=== PATIENT | female | born 1995 | race African-American/Black ===

== ENCOUNTER 2016-12-02 07:56 | Emergency (ER) | payer OTHER ==
[2016-12-02 08:02] VITALS: BP 148/81
[2016-12-02] MEDS ORDERED: PENICILLIN G BENZATHINE 1.2 MILLION UNIT/2 ML DISP.SYRIN IM ONE (08:15)
[2016-12-02] MEDS ORDERED: IBUPROFEN 800 MG TABLET PO ONE (08:15)
[2016-12-02] MEDS ORDERED: LIDOCAINE 2% VISCOUS SOLN 20 ML UDCUP PO ONE (08:15)
[2016-12-02] MEDS ORDERED: DEXAMETHASONE 4 MG TABLET PO ONE (08:15)
--- NOTE | 2016-12-02 08:17 | ER Document Report ---
HPI - HPI Patient complains to provider of: sore throat Onset: Other - 5 days Onset/Duration: Persistent Quality of pain: Achy Pain Level: 5 Context: Patient presents complaining of sore throat for the past 5 days. Patient noticed exudate on left tonsil today. Patient states that she has not been taking as much oral fluids due to the discomfort in her throat. Associated Symptoms: Sore throat. denies: Earache, Fever, Headache, Nausea, Vomiting Exacerbated by: Denies Relieved by: Denies Similar symptoms previously: Yes Recently seen / treated by doctor: No - ROS ROS below otherwise negative: Yes Systems Reviewed and Negative: Yes All other systems reviewed and negative - CONSTITUTIONAL Constitutional: DENIES: Fever - EENT EENT: REPORTS: Sore Throat. DENIES: Ear Pain - RESPIRATORY Respiratory: DENIES: Coughing - GASTROINTESTINAL Gastrointestinal: DENIES: Nausea, Patient vomiting - REPRODUCTIVE Reproductive: DENIES: : - DERM Skin Color: Normal Skin Problems: None Past Medical History - General Information source: Patient - Social History Smoking Status: Never Smoker Frequency of alcohol use: None Drug Abuse: None Occupation: [employer] Family History: CAD, Hyperlipidemia, Hypertension, Malignancy - Medical History Medical History: Negative Renal/ Medical History: Denies: Hx Peritoneal Dialysis Surgical Hx: Negative - Immunizations Immunizations up to date: Yes Hx Diphtheria, Pertussis, Tetanus Vaccination: Yes Vertical Provider Document - CONSTITUTIONAL Agree With Documented VS: Yes Exam Limitations: No Limitations General Appearance: WD/WN, No Apparent Distress - INFECTION CONTROL TRAVEL OUTSIDE OF THE [place] IN LAST 30 DAYS: No - HEENT HEENT: Atraumatic, Normocephalic, Pharyngeal Exudate, Pharyngeal Tenderness, Pharyngeal Erythema. negative: Tympanic Membrane Red, Tympanic Membrane Bulging - NECK Neck: Lymphadenopathy-Left, Lymphadenopathy-Right - RESPIRATORY Respiratory: Breath Sounds Normal, No Respiratory Distress, Chest Non-Tender O2 Sat by Pulse Oximetry: 100 - CARDIOVASCULAR Cardiovascular: Regular Rhythm, No Murmur, Tachycardia - MUSCULOSKELETAL/EXTREMETIES Musculoskeletal/Extremeties: CHASE CAVAZOS - NEURO Level of Consciousness: Awake, Alert, Appropriate Motor/Sensory: No Motor Deficit - DERM Integumentary: Warm, Dry, No Rash Course - Re-evaluation Re-evalutation: 12/02/16 08:16 The patient has been informed that they may have pre-hypertension or hypertension based on a blood pressure reading in the emergency department. I recommend that patient call the primary care provider listed on their discharge instructions or a physician of their choice by this week to arrange follow-up for further evaluation of possible pre-hypertension or hypertension. - Vital Signs Vital signs: Temp Pulse Resp BP Pulse Ox 99.5 F 109 H 18 148/81 H 100 12/02/16 08:00 12/02/16 08:00 12/02/16 08:00 12/02/16 08:00 12/02/16 08:00 Discharge - Discharge Clinical Impression: Tonsillitis, Elevated blood pressure reading Condition: Stable Disposition: HOME, SELF-CARE Instructions: Tonsillitis ([facility]), Sore Throat ([facility]), Corticosteroid Medication ( [facility]), Antibiotic Shot ([facility]), Anti-Inflammatory Medication ([facility]) Additional Instructions: Return immediately for any new or worsening symptoms Followup with your primary care provider, call tomorrow to make a followup appointment Prescriptions: Naproxen [Naprosyn 250 Nmg Tablet] 1 tab PO BID #14 tablet Forms: Elevated Blood Pressure Referrals: RM ZAMORA MD [ACTIVE STAFF] - Follow up as needed
[2016-12-08] MEDS ORDERED: LIDOCAINE 0.5% INJ-PF (5 MG/ML) 50 ML SDV SUBCUT PRN (05:00)
[2016-12-08] MEDS ORDERED: LACTATED RINGERS 1000 ML IV PRN (05:00)
== END 2016-12-02 09:30 | disposition home or self-care (01) ==
LOC: ER 07:56
DX: J03.90 Acute tonsillitis, unspecified (principal); R03.0 Elevated blood-pressure reading, without diagnosis of hypertension; J02.9 Acute pharyngitis, unspecified
CPT/HCPCS: 99282; J3490

== ENCOUNTER 2016-12-05 20:59 | Emergency (ER) | payer OTHER ==
--- NOTE | 2016-12-05 22:15 | ER Document Report ---
ED ENT - General Mode of Arrival: Ambulatory Information source: Patient TRAVEL OUTSIDE OF THE [place] IN LAST 30 DAYS: No - HPI Patient complains to provider of: Throat problem Onset: Other - Recurrent, refer to HPI notes Associated symptoms: Fever, Sore throat Similar symptoms previously: Yes Recently seen / treated by doctor: Yes - [facility] ED 12/02/16 <AARON GUERRA - Last Filed: 12/05/16 23:26> <YURY REDDY - Last Filed: 12/06/16 01:22> - General Chief Complaint: Sore Throat Stated Complaint: SORE THROAT Time Seen by Provider: 12/05/16 22:15 Notes: Patient is a 21 year old female presenting to the emergency department for sore throat and fever. Patient states she had a sore throat x1 week and was seen here on Sunday12/02/16 and treated with steroids and penicillin. Patient states her symptoms were relieved until this morning when she woke up with a sore throat and fever. Patient's symptoms have persisted throughout the day. Patient states she did sleep with a fan on in her room last night. Patient states it is painful to swallow. Patient has no known drug allergies and is not allergic to IV contrast or dye. (AARON GUERRA) - Related Data Allergies/Adverse Reactions: No Known Allergies Allergy (Verified 12/05/16 23:31) Home Medications: Current Home Medications Norethindrone-Ethinyl Estrad [Dasetta -28 Tablet] 1 each PO DAILY 12/05/16 [History] Past Medical History - General Information source: Patient - Social History Smoking Status: Never Smoker Cigarette use (# per day): No Chew tobacco use (# tins/day): No Smoking Education Provided: No Frequency of alcohol use: None Drug Abuse: None Family History: CAD, Hyperlipidemia, Hypertension, Malignancy Patient has suicidal ideation: No Patient has homicidal ideation: No - Medical History Medical History: Negative Surgical Hx: Negative - Immunizations Immunizations up to date: Yes Hx Diphtheria, Pertussis, Tetanus Vaccination: Yes <AARON GUERRA - Last Filed: 12/05/16 23:26> Review of Systems - Review of Systems Constitutional: See HPI, Fever EENT: See HPI, Throat pain Cardiovascular: No symptoms reported Respiratory: No symptoms reported Gastrointestinal: No symptoms reported Genitourinary: No symptoms reported Female Genitourinary: No symptoms reported Musculoskeletal: No symptoms reported Skin: No symptoms reported Hematologic/Lymphatic: No symptoms reported Neurological/Psychological: No symptoms reported -: Yes All other systems reviewed and negative <BONGAARON CUETO - Last Filed: 12/05/16 23:26> Physical Exam - Vital signs Interpretation: Febrile <CHARLIEAARON - Last Filed: 12/05/16 23:26> <YURY REDDY - Last Filed: 12/06/16 01:22> - Vital signs Vitals: Temp Pulse Resp BP Pulse Ox 101.1 F H 114 H 16 143/82 H 100 12/05/16 21:07 12/05/16 21:07 12/05/16 21:07 12/05/16 21:07 12/05/16 21:07 - Notes Notes: GENERAL: Alert, interacts well. No acute distress. HEAD: Normocephalic, atraumatic. EYES: Pupils equal, round, and reactive to light. Extraocular movements intact. ENT: Oral mucosa moist, tongue midline. Oropharynx has exudate and erythema. Tonsils are enlarged, right worse than the left. Nares patent, no nasal septal hematoma, clear rhinorrhea bilaterally. TM's intacts. NECK: Full range of motion. Supple. Trachea midline. LUNGS: Clear to auscultation bilaterally, no wheezes, rales, or rhonchi. No respiratory distress. HEART: Regular rate and rhythm. 2/6 systolic murmur. No gallops, or rubs. EXTREMITIES: Moves all 4 extremities spontaneously. No edema. No cyanosis. NEUROLOGICAL: Alert and oriented x3. Normal speech. PSYCH: Normal affect, normal mood. SKIN: Hot to touch, dry, normal turgor. No rashes or lesions noted. (AARON GUERRA) Course - Laboratory Result Diagrams: 12/05/16 23:02 12/05/16 23:02 <CHARLIEAARON - Last Filed: 12/05/16 23:26> - Laboratory Result Diagrams: 12/05/16 23:02 12/05/16 23:02 <YURY REDDY - Last Filed: 12/06/16 01:22> - Re-evaluation Re-evalutation: 12/06/16 01:14 CBC unremarkable, BMP unremarkable, test negative, strep test negative , soft tissue CAT scan of the neck was ordered to rule out peritonsillar abscess , shows large amount of lymphadenopathy but no evidence of abscess. Patient will be started on Augmentin, given another dose of steroids for pain relief and discharged home. (YURY REDDY) - Vital Signs Vital signs: Temp Pulse Resp BP Pulse Ox 101.1 F H 114 H 16 143/82 H 100 12/05/16 21:07 12/05/16 21:07 12/05/16 21:07 12/05/16 21:07 12/05/16 21:07 - Laboratory Laboratory results interpreted by me: 12/05/16 12/05/16 23:02 23:02 Seg Neutrophils % 82.6 H Lymphocytes % 8.3 L Sodium 136.6 L Discharge <AARON GUERRA - Last Filed: 12/05/16 23:26> <YURY REDDY - Last Filed: 12/06/16 01:22> - Discharge Clinical Impression: Tonsillitis, Anterior cervical lymphadenopathy Condition: Stable Disposition: HOME, SELF-CARE Additional Instructions: There is no evidence of an abscess on your CAT scan today. We have started you on Augmentin. Please take the antibiotics as directed until they are gone. I have given you another dose of steroids here as well to help decrease some of the swelling which causes the pain. Please return should your fever persist for another 48 hours, should you develop any difficulty swallowing or you have any new or concerning symptoms. Prescriptions: Amox Tr/Potassium Clavulanate [Augmentin 875-125 Tablet] 1 tab PO BID 10 Days Referrals: RM ZAMORA MD [Primary Care Provider] - Follow up in 3-5 days Scribe Attestation: 12/06/16 01:17 I personally performed the services described in the documentation, reviewed and edited the documentation which was dictated to the scribe in my presence, and it accurately records my words and actions. (YURY REDDY) Scribe Documentation - Scribe Written by Jessica:: Jessica Chadwick 12/05/2016 23:09 acting as scribe for :: Cary <AARON GUERRA - Last Filed: 12/05/16 23:26>
[2016-12-05 23:20] LABS: ABSOLUTE EOSINOPHILS # (AUTO) 0.1 10^3/uL (0.0-0.6); ABSOLUTE LYMPHOCYTES (AUTO) 0.8 10^3/uL (0.5-4.7); ABSOLUTE MONOCYTES (AUTO) 0.8 10^3/uL (0.1-1.4); ABSOLUTE NEUT (AUTO) 8.2 10^3/uL (1.7-8.2); BASOPHILS % (AUTO) 0.3 % (0-2); EOSINOPHILS % (AUTO) 0.9 % (0-6); HEMATOCRIT 36.5 % (36.0-47.0); HEMOGLOBIN 12.7 g/dL (12.0-15.5); HGB HCT DIFFERENCE 1.6; LYMPHOCYTES % (AUTO) 8.3 % (13-45); MEAN CORPUSCULAR HGB CONC 34.7 g/dL (32.0-36.0); MEAN CORPUSCULAR VOLUME 86 fl (80-97); MONOCYTES % (AUTO) 7.9 % (3-13); RED BLOOD COUNT 4.22 10^6/uL (3.72-5.28); RED CELL DISTRIBUTION WIDTH 12.6 % (11.5-14.0); SEGMENTED NEUTROPHILS % (AUTO) 82.6 % (42-78); WHITE BLOOD COUNT 9.9 10^3/uL (4.0-10.5)
[2016-12-05 23:33] LABS: POTASSIUM 3.9 mmol/L (3.6-5.0)
[2016-12-05 23:34] LABS: ANION GAP 14 (5-19); BLOOD UREA NITROGEN 8 mg/dL (7-20); CALCIUM 9.5 mg/dL (8.4-10.2); CARBON DIOXIDE 23 mmol/L (22-30); CHLORIDE 100 mmol/L (98-107); CREATININE RESULT 0.64 mg/dL (0.52-1.25); GLUCOSE 93 mg/dL (75-110); SODIUM 136.6 mmol/L (137-145)
--- NOTE | 2016-12-06 01:05 | RADIOLOGY REPORT (SQ) ---
EXAM DESCRIPTION: CT SOFT TISSUE NECK WITH COMPLETED DATE/TIME: 12/06/2016 12:30 am REASON FOR STUDY: sore throat, swelling R>L COMPARISON: None. TECHNIQUE: Post IV contrasted scanning from skull base through lung apices with review of bone, soft tissue and lung windows. Reconstructed coronal and sagittal MPR images reviewed. All images stored on PACS. All CT scanners at this facility use dose modulation, iterative reconstruction, and/or weight based d osing when appropriate to reduce radiation dose to as low as reasonably achievable (ALARA). [facility]: Dose Right [facility]: CareDose [facility]: Dose Right [facility]: Teradose 4D [facility]: 4INFO CONTRAST TYPE AND DOSE: contrast/concentration: Isovue 370.00 mg/ml; Total Contrast Delivered: 75.0 ml; Total Saline Delivered: 42.1 ml RENAL FUNCTION: None required. The patient is less than 50 years old. RADIATION DOSE: 684 LIMITATIONS: None. FINDINGS: SKULL BASE: Intact. MAJOR SALIVARY GLANDS: No solid or cystic masses. No inflammatory changes. LYMPHADENOPATHY: Moderate suprahyoid cervical lymphadenopathy includes lymph nodes deep to the sterno cleidomastoid measuring up to 1.9 x 1.8 cm on the right and 1.9 x 1.5 cm on the left, image 49 of ser ies 2. MUCOSAL MASSES OR ASYMMETRY: No mucosal masses or asymmetry. LARYNX/CORDS: No abnormal findings. VASCULAR STRUCTURES: The major vessels are patent. LUNG APICES: Clear. BONES: Intact. THYROID: Normal size. No masses. PARANASAL SINUSES: Clear. OTHER: No other significant finding. IMPRESSION: Moderate cervical lymphadenopathy. Infectious, inflammatory, nand eoplastic processes a re in the differential diagnosis. TECHNICAL DOCUMENTATION: JOB ID: [id number] Quality ID # [id number]: Final reports with documentation of one or more dose reduction techniques (e.g., Au tomated exposure control, adjustment of the mA and/or kV according to patient size, use of iterative reconstruction technique) 2010 [email or web address] ([employer])- All Rights Reserved
[2016-12-06] MEDS ORDERED: AMOXICILLIN TR/POT CLAVULANATE 500-125 MG TAB PO ONE (01:17)
[2016-12-06] MEDS ORDERED: DEXAMETHASONE SOD PHOS INJ 10 MG/1 ML VIAL IV ONE (01:17)
[2016-12-06 01:47] VITALS: BP 140/78
== END 2016-12-06 01:47 | disposition home or self-care (01) ==
LOC: ER 20:59
DX: J03.90 Acute tonsillitis, unspecified (principal); R59.0 Localized enlarged lymph nodes; R50.9 Fever, unspecified
CPT/HCPCS: 99284; 96374; 36415; 87070; 87880; 84703; 85025; 80048; 70491; J1100